=== PATIENT | female | born 1985 | race Hispanic/Latino ===

== ENCOUNTER 2017-07-13 05:46 | Emergency (ER) | payer OTHER ==
[2017-07-13] MEDS ORDERED: HYOSCYAMINE SULFATE 0.125 MG TAB.SUBL SL ONE (06:12)
[2017-07-13] MEDS ORDERED: ONDANSETRON ODT 4 MG TAB ONE (06:12)
[2017-07-13 06:34] LABS: APPEARANCE,URINE Cloudy (CLEAR); BILIRUBIN,URINE Negative (NEGATIVE); COLOR,URINE Yellow (YELLOW); GLUCOSE, URINE (UA) Negative (NEGATIVE); KETONES,URINE Negative (NEGATIVE); LEUKOCYTE ESTERASE ,URINE Small (NEGATIVE); NITRATE,URINE Negative (NEGATIVE); OCCULT BLOOD,URINE Small (NEGATIVE); PROTEIN,URINE Trace (NEGATIVE); UROBILINOGEN,URINE 0.2 mg/dL (0.2-1.0)
[2017-07-13 06:38] LABS: HCG,QUAL RESULT NEGATIVE (NEGATIVE)
[2017-07-13 07:05] LABS: BACTERIA,URINE Few /HPF (None Seen)
[2017-07-13 07:06] LABS: AMORPHOUS SEDIMENT,UR Few /LPF (None Seen)
[2017-08-06] MEDS ORDERED: TRAM50TA4 PO (14:17)
== END 2017-07-13 07:30 | disposition home or self-care (01) ==
LOC: EDH 05:46
DX: J10.2 Influenza due to other identified influenza virus with gastrointestinal manifestations (principal); R51 Headache; Z98.890 Other specified postprocedural states
CPT/HCPCS: 81001; 81025; 87804

== ENCOUNTER 2017-07-15 22:20 | Emergency (ER) | payer OTHER ==
[2017-07-15 22:40] LABS: APPEARANCE,URINE Clear (CLEAR); BILIRUBIN,URINE Negative (NEGATIVE); COLOR,URINE Yellow (YELLOW); GLUCOSE, URINE (UA) Negative (NEGATIVE); KETONES,URINE Negative (NEGATIVE); LEUKOCYTE ESTERASE ,URINE Negative (NEGATIVE); NITRATE,URINE Negative (NEGATIVE); OCCULT BLOOD,URINE Negative (NEGATIVE); PH,URINE 6.5 (5.0-8.0); PROTEIN,URINE Negative (NEGATIVE); UROBILINOGEN,URINE 0.2 mg/dL (0.2-1.0)
[2017-07-15 22:42] LABS: HCG,QUAL RESULT NEGATIVE (NEGATIVE)
[2017-07-15 22:55] LABS: BASOPHILS % (AUTO) 0.5 % (0.0-5.0); HEMATOCRIT 35.6 % (36-48); MEAN CORPUSCULAR HEMOGLOBIN 27.7 pg (27.0-33.0); MEAN CORPUSCULAR VOLUME 81.5 fL (79-99); MONOCYTES % (AUTO) 6.9 % (3.0-13.0); NEUTROPHILS % (AUTO) 57.6 % (40.0-77.0); PLATELET COUNT (AUTO) 259 K/uL (130-400); RED BLOOD CELL COUNT(AUTO) 4.37 MIL/uL (4.00-5.50); RED CELL DISTRIBUTION WIDTH 13.4 % (11.0-15.5); WHITE BLOOD COUNT (AUTO) 9.7 K/uL (4.8-10.8)
[2017-07-15] MEDS ORDERED: ONDANSETRON HCL 4 MG/2 ML VIAL ONE (22:56)
[2017-07-15] MEDS ORDERED: MORPHINE SULFATE 4 MG/1ML SYG ONE (22:56)
[2017-07-15] MEDS ORDERED: HYOSCYAMINE SULFATE 0.125 MG TAB.SUBL SL ONE (22:57)
[2017-07-15] MEDS ORDERED: SODIUM CHLORIDE 0.9% 1000ML 1,000 ML IV ONE (22:57)
[2017-07-15 23:10] LABS: CREATININE 0.7 mg/dL (0.5-1.5); POTASSIUM 4.2 mmol/L (3.5-5.1)
[2017-07-15 23:15] LABS: ALBUMIN 3.8 g/dL (3.5-5.0); BILIRUBIN,TOTAL 0.2 mg/dL (0.2-1.0); TOTAL PROTEIN, SERUM 7.9 g/dL (6.0-8.3)
[2017-07-16] MEDS ORDERED: KETOROLAC TROMETHAMINE 30MG/ML ONE
[2017-07-16] MEDS ORDERED: IOPAMIDOL-370 75 ML VIAL IV ONE
[2017-07-16] MEDS ORDERED: METHYLPREDNISOLONE SOD SUCC 125MG/2ML VIAL ONE (02:28)
[2017-07-16] MEDS ORDERED: ONDANSETRON HCL 4 MG/2 ML VIAL ONE (02:29)
[2017-07-16] MEDS ORDERED: MORPHINE SULFATE 4 MG/1ML SYG ONE (02:29)
[2017-07-18 09:08] LABS: CHLAMYDIA DNA N.A.AMPLIFY Negative (Negative)
[2017-08-06] MEDS ORDERED: TRAM50TA4 PO (14:17)
== END 2017-07-16 02:41 | disposition home or self-care (01) ==
LOC: EDH 22:20
DX: K59.00 Constipation, unspecified (principal); N83.292 Other ovarian cyst, left side; N83.291 Other ovarian cyst, right side; Z98.890 Other specified postprocedural states
CPT/HCPCS: 36415; 74177; 76705; 80053; 81003; 81025; 83690; 85025; 87210; 87486; 87797; 87804 ×2; 96361; 96374; 96375; 96376; 99285; J1885; J2270 ×2; J2405 ×2; J2930; J7030; Q9967

== ENCOUNTER 2017-08-12 06:00 | Day surgery (SDC) | payer OTHER ==
[2017-08-06 13:47] VITALS: BP 136/69
[2017-08-06 13:53] LABS: BASOPHILS % (AUTO) 0.4 % (0.0-5.0); EOSINOPHILS % (AUTO) 1.7 % (0.0-8.0); HEMATOCRIT 33.9 % (36-48); LYMPHOCYTES % (AUTO) 35.6 % (21.0-51.0); MEAN CORPUSCULAR HEMOGLOBIN 27.9 pg (27.0-33.0); MEAN CORPUSCULAR HGB CONC 34.4 g/dL (32.0-36.0); MEAN CORPUSCULAR VOLUME 81.1 fL (79-99); MONOCYTES % (AUTO) 6.4 % (3.0-13.0); NEUTROPHILS % (AUTO) 55.9 % (40.0-77.0); PLATELET COUNT (AUTO) 257 K/uL (130-400); RED BLOOD CELL COUNT(AUTO) 4.19 MIL/uL (4.00-5.50); RED CELL DISTRIBUTION WIDTH 13.5 % (11.0-15.5); WHITE BLOOD COUNT (AUTO) 7.2 K/uL (4.8-10.8)
[2017-08-09] MEDS: CEFAZOLIN SODIUM 1 GM VIAL IVP SCH (06:30)
[~2017-08-12] VITALS: Ht 160 cm; Wt 97.7 kg
[2017-08-12] VITALS (16 sets, daily range): BP systolic 112–129; BP diastolic 53–84
[~2017-08-12 06:00] MED LIST: TRAM50TA4 PO
[2017-08-12] MEDS ORDERED: LACTATED RINGERS 1000ML 1,000 ML IV ONE (06:05)
[2017-08-12] MEDS ORDERED: DEXAMETHASONE SOD PHOSPHATE 10MG/ML 1ML VIAL ONE (06:46)
[2017-08-12] MEDS ORDERED: LIDOCAINE HCL MPF 1% 5ML VIAL ONE (06:46)
[2017-08-12] MEDS ORDERED: LIDOCAINE PF 2% 5ML ABBOJECT ONE (06:47)
[2017-08-12] MEDS ORDERED: NEOSTIGMINE METHYLSULFATE 1MG/ML IV ONE (06:47)
[2017-08-12] MEDS ORDERED: MIDAZOLAM HCL 1 MG/ML 2ML VIAL ONE (06:47)
[2017-08-12] MEDS ORDERED: ROCURONIUM BROMIDE 10MG/1ML 5ML VL ONE (06:47)
[2017-08-12] MEDS ORDERED: PROPOFOL 10 MG/ML 20ML VIAL IV ONE (06:47)
[2017-08-12] MEDS ORDERED: FENTANYL CITRATE PF 50 MCG/1 ML 2ML VIAL ONE (06:48)
[2017-08-12] MEDS: CEFAZOLIN SODIUM 1 GM VIAL IVP SCH (06:50)
[2017-08-12] MEDS ORDERED: OCTYL 2-CYANOACRYLATE 1 EACH TP ONE (07:24)
[2017-08-12] MEDS ORDERED: MEPERIDINE-PF 50 MG/ML SYG ONE (07:59)
[2017-08-12] MEDS ORDERED: TYL3 PO (09:42)
== END 2017-08-12 10:08 | disposition home or self-care (01) ==
LOC: DAH 06:00
PROVIDERS: ATTEND Obstetrics & Gynecology
DX: K66.0 Peritoneal adhesions (postprocedural) (postinfection) (principal); E66.9 Obesity, unspecified
CPT/HCPCS: 36415 ×2; 49320; 84703; 85025; 86850 ×2; 86900 ×2; 86901 ×2; A4215; A4218; A4351; A4600; A4649 ×3; A4930; C1769; J0690; J1100; J2001; J2175; J2250; J2704; J2710; J3010; J3490 ×2; J7030 ×2; J7120

== ENCOUNTER 2017-10-04 11:00 | Inpatient (IN) | payer OTHER ==
[~2017-10-04] VITALS: Ht 160 cm; Wt 93.6 kg
[2017-10-04] MEDS: CEFAZOLIN SODIUM 1 GM VIAL IVP SCH (08:30)
[2017-10-04 11:20] VITALS: BP 119/77
[2017-10-04 11:24] LABS: BASOPHILS % (AUTO) 0.5 % (0.0-5.0); EOSINOPHILS % (AUTO) 2.4 % (0.0-8.0); HEMATOCRIT 36.9 % (36-48); MEAN CORPUSCULAR HEMOGLOBIN 28.3 pg (27.0-33.0); MEAN CORPUSCULAR HGB CONC 34.4 g/dL (32.0-36.0); MEAN CORPUSCULAR VOLUME 82.1 fL (79-99); MONOCYTES % (AUTO) 7.1 % (3.0-13.0); NUCLEATED RED BLOOD CELLS 0.1 % (0.0-0.19); PLATELET COUNT (AUTO) 242 K/uL (130-400); RED BLOOD CELL COUNT(AUTO) 4.49 MIL/uL (4.00-5.50); RED CELL DISTRIBUTION WIDTH 13.8 % (11.0-15.5); WHITE BLOOD COUNT (AUTO) 5.4 K/uL (4.8-10.8)
[2017-10-05] VITALS (31 sets, daily range): BP systolic 115–188; BP diastolic 68–96
[2017-10-05] MEDS ORDERED: LACTATED RINGERS 1000ML 1,000 ML IV ONE (08:43)
[2017-10-05] MEDS ORDERED: PROPOFOL 10 MG/ML 20ML VIAL IV ONE (09:16)
[2017-10-05] MEDS ORDERED: FENTANYL CITRATE PF 50 MCG/1 ML 2ML VIAL ONE ×4 (09:16→11:05)
[2017-10-05] MEDS ORDERED: MIDAZOLAM HCL 1 MG/ML 2ML VIAL ONE (09:16)
[2017-10-05] MEDS ORDERED: ROCURONIUM BROMIDE 10MG/1ML 5ML VL ONE ×2 (09:19→10:27)
[2017-10-05] MEDS: CEFAZOLIN SODIUM 1 GM VIAL IVP SCH ×2 (09:20→18:35)
[2017-10-05] MEDS ORDERED: PROMETHAZINE HCL 25 MG/ML 1ML AMPULE IM ONE (09:20)
[2017-10-05] MEDS ORDERED: NEOSTIGMINE METHYLSULFATE 1MG/ML IV ONE (10:27)
[2017-10-05] MEDS ORDERED: GLYCOPYRROLATE 0.2 MG/ML 5 ML VIAL ONE (10:27)
[2017-10-05] MEDS ORDERED: LIDOCAINE PF 2% 5ML ABBOJECT ONE (10:27)
[2017-10-05] MEDS ORDERED: DiphenhydrAMINE HCL 50 MG/ML VIAL ONE (10:27)
[2017-10-05] MEDS ORDERED: DEXAMETHASONE SOD PHOSPHATE 10MG/ML 1ML VIAL ONE (10:27)
[2017-10-05] MEDS ORDERED: MEPERIDINE-PF 25 MG/ML SYG ONE ×2 (10:57→11:15)
[2017-10-05] MEDS ORDERED: HYDROMORPHONE 4MG/ML 1ML VIAL ONE ×2 (11:24→11:47)
[2017-10-05] MEDS ORDERED: CEFAZOLIN 2GM / 50 ML 50 ML IV SCH (12:45)
[2017-10-05] MEDS ORDERED: PROMETHAZINE HCL 25 MG/ML 1ML AMPULE IM PRN (12:45)
[2017-10-05] MEDS: PROMETHAZINE HCL 25 MG/ML 1ML AMPULE IM PRN ×2 (14:56→18:41)
[2017-10-05] MEDS: MEPERIDINE-PF 75 MG/ML SYG IM PRN ×2 (14:58→18:42)
[2017-10-05] MEDS: ACETAMINOPHEN-CODEINE 300/30MG TAB PO PRN ×2 (16:31→21:22)
[2017-10-05] MEDS: DEXTROSE 5%-LACTATED RINGERS 1,000 ML IV PRN (18:55)
[2017-10-05] MEDS: DOCUSATE SODIUM 100 MG CAP PO PRN (21:19)
[2017-10-05] MEDS: SIMETHICONE 80 MG TAB.CHEW PO PRN (21:20)
[2017-10-06] MEDS: PROMETHAZINE HCL 25 MG/ML 1ML AMPULE IM PRN (01:54)
[2017-10-06] MEDS: MEPERIDINE-PF 75 MG/ML SYG IM PRN (01:55)
[2017-10-06] MEDS: DEXTROSE 5%-LACTATED RINGERS 1,000 ML IV PRN (02:05)
[2017-10-06] MEDS ORDERED: CEFAZOLIN SODIUM 1 GM VIAL ONE (02:10)
[2017-10-06] MEDS: CEFAZOLIN SODIUM 1 GM VIAL IVP SCH (02:31)
[2017-10-06 03:35] VITALS: BP 122/63
[2017-10-06] MEDS: ACETAMINOPHEN-CODEINE 300/30MG TAB PO PRN ×4 (06:46→21:49)
[2017-10-06 06:58] LABS: HEMATOCRIT 32.2 % (36-48); MEAN CORPUSCULAR HEMOGLOBIN 29.6 pg (27.0-33.0); MEAN CORPUSCULAR HGB CONC 36.1 g/dL (32.0-36.0); MEAN CORPUSCULAR VOLUME 81.9 fL (79-99); NUCLEATED RED BLOOD CELLS 0.1 % (0.0-0.19); PLATELET COUNT (AUTO) 216 K/uL (130-400); RED BLOOD CELL COUNT(AUTO) 3.93 MIL/uL (4.00-5.50); WHITE BLOOD COUNT (AUTO) 9.6 K/uL (4.8-10.8)
[2017-10-06] MEDS ORDERED: ACETAMINOPHEN-CODEINE 300/30MG TAB PO PRN (07:45)
[2017-10-06] MEDS ORDERED: HYDROCODONE/ACETAMINOPHEN 5/325 MG TAB PO PRN (07:45)
[2017-10-06] MEDS ORDERED: IBUPROFEN 800 MG TAB PO PRN (07:45)
[2017-10-06] MEDS ORDERED: DOCUSATE SODIUM 100 MG CAP PO PRN (07:45)
[2017-10-06] MEDS ORDERED: BISACODYL 10 MG SUPP.RECT RC PRN (07:45)
[2017-10-06 07:52] VITALS: BP 117/70
[2017-10-06] MEDS: IBUPROFEN 600 MG TABLET PO PRN ×2 (07:56→17:50)
[2017-10-06] MEDS: DOCUSATE SODIUM 100 MG CAP PO PRN ×2 (10:27→21:03)
[2017-10-06] MEDS: SIMETHICONE 80 MG TAB.CHEW PO PRN ×4 (10:28→21:02)
[2017-10-06 11:54] VITALS: BP 131/85
[2017-10-06 16:07] VITALS: BP 118/70
[2017-10-06 19:33] VITALS: BP 122/79
[2017-10-06] MEDS: BISACODYL 10 MG SUPP.RECT RC PRN (19:49)
[2017-10-06 23:54] VITALS: BP 123/77
[2017-10-07 03:43] VITALS: BP 117/74
[2017-10-07 07:37] VITALS: BP 110/69
[2017-10-07] MEDS: SIMETHICONE 80 MG TAB.CHEW PO PRN (09:04)
[2017-10-07] MEDS: DOCUSATE SODIUM 100 MG CAP PO PRN (09:05)
[2017-10-07] MEDS: ACETAMINOPHEN-CODEINE 300/30MG TAB PO PRN (09:05)
[2017-10-07] MEDS: BISACODYL 10 MG SUPP.RECT RC PRN (11:15)
[2017-10-07 11:43] VITALS: BP 121/72
== END 2017-10-07 12:15 | disposition home or self-care (01) | DRG 743 ==
LOC: EDSTATUS 11:00 → DAHIP 10-05 08:33 → WSH 10-05 12:30
PROVIDERS: ADMIT Obstetrics & Gynecology; ATTEND Obstetrics & Gynecology
PROC: 0UT90ZL Resection of Uterus, Supracervical, Open Approach (ICD-10-PCS; principal; 2017-10-05 09:23)
PROC: 0UN90ZZ Release Uterus, Open Approach (ICD-10-PCS; 2017-10-05 09:23)
DX: N73.6 Female pelvic peritoneal adhesions (postinfective) (principal); N92.0 Excessive and frequent menstruation with regular cycle; Z28.21 Immunization not carried out because of patient refusal
CPT/HCPCS: 36415; 84703; 85025; 85027; 86850; 86900; 86901; 88305; 88307; A4218; A4344; J0690; J1100; J1170; J1200; J2001; J2175; J2250; J2550; J2704; J2710; J3010; J3490; J7120

== ENCOUNTER 2017-12-23 22:40 | Emergency (ER) | payer OTHER ==
[2017-12-23 23:23] LABS: APPEARANCE,URINE Clear (CLEAR); BILIRUBIN,URINE Negative (NEGATIVE); COLOR,URINE Yellow (YELLOW); GLUCOSE, URINE (UA) Negative (NEGATIVE); KETONES,URINE Negative (NEGATIVE); LEUKOCYTE ESTERASE ,URINE Negative (NEGATIVE); NITRATE,URINE Negative (NEGATIVE); OCCULT BLOOD,URINE Negative (NEGATIVE); PROTEIN,URINE Negative (NEGATIVE); UROBILINOGEN,URINE 0.2 mg/dL (0.2-1.0)
[2017-12-24] MEDS ORDERED: KETOROLAC TROMETHAMINE 60 MG/2 ML VIAL ONE (00:01)
== END 2017-12-24 01:39 | disposition home or self-care (01) ==
LOC: EDH 22:40
DX: K59.00 Constipation, unspecified (principal); R42 Dizziness and giddiness; Z90.710 Acquired absence of both cervix and uterus
CPT/HCPCS: 74018; 74176; 81003; 96372; 99285; J1885

== ENCOUNTER 2018-05-07 19:27 | Emergency (ER) | payer OTHER ==
[2018-05-07] MEDS ORDERED: KETOROLAC TROMETHAMINE 60 MG/2 ML VIAL ONE (20:31)
[2018-05-07] MEDS ORDERED: CEFTRIAXONE SODIUM 1 GM ONE (20:31)
[2018-05-07] MEDS ORDERED: LIDOCAINE HCL 1% 20 ML VIAL ONE (20:31)
== END 2018-05-07 20:39 | disposition home or self-care (01) ==
LOC: EDH 19:27
CPT/HCPCS: J0696; J1885

== ENCOUNTER → 2018-06-16 | Outpatient (CLI) | payer OTHER | END | disposition home or self-care (01) | LOC: RAH 08:18 | PROVIDERS: ATTEND Podiatrist | DX: M86.8X7 Other osteomyelitis, ankle and foot (principal) | CPT/HCPCS: 73718 ==

== ENCOUNTER 2018-09-28 16:20 | Emergency (ER) | payer OTHER ==
[2018-09-28] MEDS ORDERED: KETOROLAC TROMETHAMINE 60 MG/2 ML VIAL ONE (17:00)
== END 2018-09-28 17:24 | disposition home or self-care (01) ==
LOC: EDH 16:20
DX: S86.911A Strain of unspecified muscle(s) and tendon(s) at lower leg level, right leg, initial encounter (principal); Z90.710 Acquired absence of both cervix and uterus; Z98.890 Other specified postprocedural states; X58.XXXA Exposure to other specified factors, initial encounter; Y93.89 Activity, other specified; Y92.89 Other specified places as the place of occurrence of the external cause; Y99.8 Other external cause status
CPT/HCPCS: 96372; 99283; J1885

== ENCOUNTER → 2024-05-17 | Outpatient (CLI) | payer OTHER ==
--- NOTE | 2024-05-17 12:08 | HMCIMG ---
MAMMO PROMOTIONAL SCRN MAMMO HISTORY: Screening mammogram. COMPARISON: None TECHNIQUE: Bilateral screening mammogram with CAD was performed with craniocaudal and mediolateral oblique projections. FINDINGS: There are scattered areas of fibroglandular density. There is no evidence of a dominant mass, or suspicious microcalcification. There is no evidence of nipple retraction or skin thickening. IMPRESSION: 1. No dominant mass is seen to suggest a malignant process. Patient was entered into a reminder system with a target due date for their next mammogram. BI-RADS: CATEGORY 2: BENIGN FINDINGS Recommend monthly self breast exam as well as annual clinical examination. A negative x-ray should not delay biopsy if a dominant or clinically suspicious mass is present, since 8-10% of cancers are not identified by mammography. Dense breasts particularly, may obscure an underlying neoplasm. Some of these may be detected clinically and therefore, clinical examination is an essential part of breast evaluation.
== END | disposition home or self-care (01) ==
LOC: RAH 09:47
PROVIDERS: ATTEND Family Medicine
DX: Z12.31 Encounter for screening mammogram for malignant neoplasm of breast (principal); R92.323 Mammographic fibroglandular density, bilateral breasts
CPT/HCPCS: 77067